=== PATIENT | female | born 1935 | race Caucasian/White ===

== ENCOUNTER → 2016-12-23 | Outpatient (REF) | payer MEDICARE ==
[~2016-12-23] MED LIST: ASPI81TA85 PO; DIGE1CAP7 PO; LOSA25TA8 PO; MAXZTA PO; MEGA1CAP3 PO; PRAV40TA2 PO; SYNT100T PO
[2016-12-23 18:48] LABS: CALCIUM LEVEL 10.6 MG/DL (8.8-10.2); CREATININE FOR GFR 1.04 MG/DL (0.55-1.02); GLOMERULAR FILTRATION RATE 54.6 (>39); POTASSIUM SERUM 3.7 MEQ/L (3.5-5.1)
== END ==
LOC: M LABDRWSH 17:28
PROVIDERS: ATTEND Nurse Practitioner Family
DX: I10 Essential (primary) hypertension (principal); E78.00 Pure hypercholesterolemia, unspecified; E89.0 Postprocedural hypothyroidism

== ENCOUNTER → 2016-12-23 | Outpatient (REF) | payer MEDICARE, BC | LOC: M SFHCSACK 08:35 | PROVIDERS: ATTEND Physician Assistant | DX: I10 Essential (primary) hypertension (principal); E21.3 Hyperparathyroidism, unspecified ==

== ENCOUNTER 2016-12-25 18:25 | Emergency (ER) | payer MEDICARE ==
[~2016-12-25] VITALS: Ht 162.6 cm; Wt 71.4 kg
[2016-12-25] MEDS ORDERED: MEGA1CAP3 PO (18:47)
[2016-12-25] MEDS ORDERED: MAXZTA PO (18:47)
[2016-12-25] MEDS ORDERED: SYNT100T PO (18:47)
[2016-12-25] MEDS ORDERED: LOSA25TA8 PO (18:47)
[2016-12-25] MEDS ORDERED: ASPI81TA85 PO ×2 (18:47→23:30)
[2016-12-25] MEDS ORDERED: PRAV40TA2 PO (18:47)
[2016-12-25] MEDS ORDERED: DIGE1CAP7 PO (18:47)
[2016-12-25] MEDS ORDERED: ASPIRIN 325 MG TAB PO ONE (19:00)
[2016-12-25 19:14] LABS: BASO % 0.6 % (0.0-1.0); EOS # 0.2 K/mm3 (0.0-0.50); EOS % 3.2 % (0.0-3.0); LARGE UNSTAINED CELL # 0.1 K/mm3 (0.0-0.4); LARGE UNSTAINED CELL % 1.3 % (0.0-4.0); LYMPH % 33.8 % (24.0-44.0); MEAN CORPUSCULAR HEMOGLOBIN 30.3 pg (27.0-33.0); MEAN CORPUSCULAR VOLUME 88.9 fl (80.0-96.0); MONO # 0.4 K/mm3 (0.0-0.8); MONO % 7.6 % (0.0-5.0); NEUTROPHILS # 3.1 K/mm3 (1.8-7.7); NEUTROPHILS % 53.4 % (36.0-66.0); PLATELET COUNT, AUTOMATED 269 k/mm3 (150-450); RED CELL DISTRIBUTION WIDTH 12.7 % (11.5-14.5); WHITE BLOOD COUNT 5.8 K/mm3 (4.0-10.0)
[2016-12-25 19:24] LABS: INR 0.9
[2016-12-25 19:39] LABS: ANION GAP 8 MEQ/L (8-16); BLOOD UREA NITROGEN 24 MG/DL (7-18); CALCIUM LEVEL 10.4 MG/DL (8.8-10.2); CARBON DIOXIDE LEVEL 30 MEQ/L (21-32); CHLORIDE LEVEL 100 MEQ/L (98-107); CREATININE FOR GFR 1.24 MG/DL (0.55-1.02); GLOMERULAR FILTRATION RATE 44.4 (>39); GLUCOSE, FASTING 97 MG/DL (83-110); POTASSIUM SERUM 3.6 MEQ/L (3.5-5.1); SODIUM LEVEL 138 MEQ/L (136-145)
[2016-12-25] MEDS ORDERED: NS 1,000 ML IV ONE (21:30)
[2016-12-25] MEDS ORDERED: ISOVUE-370 76% 100ML VIAL (Q9967) As Ordered ONE (21:35)
--- NOTE | 2016-12-25 22:00 | REPUSA ---
CT angiogram of the chest Clinical statement: Chest pain. Technique: Multiple axial CT images were obtained from the thoracic inlet through the upper abdomen a fter a bolus administration of nonionic intravenous contrast. Coronal and sagittal reconstructions we re also obtained. No comparison is available. Findings: The pulmonary arteries are well-opacified with contrast, with no intraluminal filling defec ts to suggest embolism. The thoracic aorta is unremarkable. Thyroid gland is within normal limits. Th ere is no thoracic lymphadenopathy. There are no pericardial or pleural effusions. The lungs are monica r. Limited imaging of the upper abdomen is unremarkable. There are no suspicious osseous lesions. Impression: Unremarkable CT examination of the chest. No evidence of pulmonary embolism.
[2016-12-25 23:19] VITALS: BP 142/65
--- NOTE | 2016-12-26 08:08 | REP ---
REASON: Chest pain. PRIORS: None. FINDINGS: The superior mediastinal structures are midline. The cardiac silhouette is unremarkable in size, shape, and position. The diaphragmatic surfaces of the lungs are regular, and the costophrenic angles are clear. The pulmonary urrutia are clear. The imaged osseous structures are intact. IMPRESSION: There is no acute cardiopulmonary disease. Signed by Parish Lang DO 12/26/2016 10:37 A
--- NOTE | 2016-12-27 02:31 | ECGEPIP ---
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
--- NOTE | 2016-12-27 02:32 | ECGEPIP ---
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
== END 2016-12-25 23:42 | disposition home or self-care (01) ==
LOC: M ED 18:25
DX: R07.89 Other chest pain (principal); I10 Essential (primary) hypertension; E78.4 Other hyperlipidemia; E03.9 Hypothyroidism, unspecified; Z87.891 Personal history of nicotine dependence
CPT/HCPCS: 71020; 71275; 80048; 82550; 82553; 84484; 85025; 85610; 85730; 93005; 99285; Q9967